=== PATIENT | male | born 1985 | race Caucasian/White ===

== ENCOUNTER 2024-03-01 22:46 | Emergency (ER) | payer SELFPAY ==
[~2024-03-01] VITALS: Ht 182.9 cm; Wt 113.4 kg
[2024-03-02] MEDS ORDERED: MORPHINE SULFATE INJ 4 MG/ML DISP.SYRIN ONE ×2 (00:19→04:04)
[2024-03-02] MEDS ORDERED: CT SWABBABLE VALVE TRANS SET 1 EA INFUS.SET MC ONE (00:27)
[2024-03-02] MEDS ORDERED: IV NS 0.9% 250 ML IV ONE (00:27)
[2024-03-02] MEDS ORDERED: IOHEXOL-300 100 ML VIAL IV ONE (00:27)
[2024-03-02] MEDS: IV NS 0.9% 1,000 ML BAG IV ONE (00:28)
[2024-03-02] MEDS: MORPHINE SULFATE INJ 10 MG/ML DISP.SYRIN IV ONE (00:33)
[2024-03-02 00:35] LABS: BASOPHILS # (AUTO) 0.1 K/uL (0.0-0.2); BASOPHILS % (AUTO) 0.9 % (0.0-2.0); EOSINOPHILS # (AUTO) 0.3 K/uL (0.0-0.7); HEMATOCRIT 38 % (39-51); HEMOGLOBIN 13.7 g/dL (13.5-17.5); LYMPHOCYTES # (AUTO) 1.7 K/uL (0.8-4.8); MEAN CORPUSCULAR HEMOGLOBIN 33 PG (26.0-33.0); MEAN CORPUSCULAR HGB CONC 36 g/dl (31.0-36.0); MEAN CORPUSCULAR VOLUME 91 fL (80-96); MONOCYTES % (AUTO) 12.7 % (2.0-12.0); NEUTROPHILS # (AUTO) 4.8 K/uL (1.8-8.9); NEUTROPHILS % (AUTO) 60.4 % (43.0-81.0); RED CELL DISTRIBUTION WIDTH 12.6 % (11.5-15.0); WHITE BLOOD COUNT (AUTO) 7.9 K/uL (4.3-11.0)
[2024-03-02 00:51] LABS: CALCIUM, SERUM 8.7 mg/dL (8.5-10.1); CREATININE 0.5 mg/dL (0.6-1.3); POTASSIUM 4.9 mmol/L (3.5-5.1)
[2024-03-02 00:57] LABS: ALBUMIN 3.4 g/dL (3.4-5.0); BILIRUBIN,TOTAL 1.7 mg/dL (0.2-1.0); TOTAL PROTEIN, SERUM 7.3 g/dL (6.4-8.2)
[2024-03-02 01:06] LABS: PLATELET COUNT (AUTO) 178 K/uL (150-450)
[2024-03-02 01:09] LABS: ADD URINE CULTURE YES; APPEARANCE,URINE CLEAR (CLEAR); BACTERIA,URINE Few /HPF (None Seen); BILIRUBIN,URINE 1+ (NEGATIVE); BLOOD, URINE TRACE-INTA Ery/uL (NEGATIVE); COLOR,URINE DARK YELLOW (YELLOW); KETONES,URINE NEGATIVE (NEGATIVE); LEUKOCYTE ESTERASE ,URINE NEGATIVE (NEGATIVE); NITRITE, URINE POSITIVE (NEGATIVE); PROTEIN,URINE 1+ mg/dl (NEGATIVE); SQUAMOUS EPITHELIAL CELL,UR Rare /HPF (None Seen); UGLUCOSE TRACE mg/dL (NEGATIVE)
[2024-03-02] MEDS: CEFTRIAXONE 1GM BAG (ER ONLY) 1 GM/50 ML PIGGYBACK IV ONE (02:05)
[2024-03-02] MEDS ORDERED: AMLODIPINE BESYLATE 5 MG TABLET ONE (02:26)
[2024-03-02] MEDS: AMLODIPINE BESYLATE 5 MG TABLET PO ONE (02:29)
[2024-03-02] MEDS ORDERED: METOPROLOL TARTRATE 25 MG TABLET ONE (03:35)
[2024-03-02] MEDS ORDERED: METOPROLOL TARTRATE INJ 5 MG/5 ML AMPUL ONE (03:35)
[2024-03-02] MEDS: METOPROLOL TARTRATE 25 MG TABLET PO ONE (03:40)
[2024-03-02] MEDS: METOPROLOL TARTRATE INJ 5 MG/5 ML AMPUL IV ONE (03:46)
[2024-03-02] MEDS: MORPHINE SULFATE INJ 2 MG/ML DISP.SYRIN IV ONE (04:11)
[2024-03-02 06:30] VITALS: TEMP 98
[2024-03-02 11:26] VITALS: BP 164/94; O2SAT 99
== END 2024-03-02 11:29 | disposition home or self-care (01) ==
LOC: ER 22:50
DX: S32.19XA Other fracture of sacrum, initial encounter for closed fracture (principal); S22.080A Wedge compression fracture of T11-T12 vertebra, initial encounter for closed fracture; I72.2 Aneurysm of renal artery; Z60.2 Problems related to living alone; V89.2XXA Person injured in unspecified motor-vehicle accident, traffic, initial encounter; Y93.89 Activity, other specified; Y92.89 Other specified places as the place of occurrence of the external cause; Y99.8 Other external cause status
CPT/HCPCS: 99285; 74177; 36415; 96365; 96375; 96361; 96376; 85025; 82550; 87086; 81001; 80053; 85007; J3490; J2270 ×3; J7030; J7050; J0696; Q9967